=== PATIENT | female | born 1980 | race Two or more races ===

== ENCOUNTER 2018-07-19 08:09 | Day surgery (SDC) | payer BC ==
[2018-07-19] MEDS ORDERED: EPINEPHrine 1 MG/ML SDV ONE ×2 (08:41→08:42)
[2018-07-19] MEDS ORDERED: Lactated Ringers 1,000 ML IV SCH (08:45)
[2018-07-19] MEDS ORDERED: Propofol 200 MG/20 ML SDV ONE (09:26)
[2018-07-19] MEDS ORDERED: Midazolam 1 MG/ML 2 ML SDV ONE (09:27)
[2018-07-19] MEDS ORDERED: fentaNYL 250 MCG/5 ML SDV ONE ×2 (09:27→12:12)
--- NOTE | 2018-07-19 09:47 | PCM.PREANE ---
Preanesthetic Assessment - Anesthesia/Transfusion/Family Hx Anesthesia History: Prior Anesthesia Without Reaction Family History of Anesthesia Reaction: No Transfusion History: No Prior Transfusion(s) - Review of Systems General: No Symptoms Pulmonary: No Symptoms Cardiovascular: No Symptoms Gastrointestinal: No Symptoms Neurological: No Symptoms Other: Reports: None - Physical Assessment NPO Status Date: 07/18/18 NPO Status Time: 23:00 O2 Sat by Pulse Oximetry: 97 Respiratory Rate: 18 Vital Signs: Last Vital Signs Temp 97.3 F 07/19/18 08:25 Pulse 85 07/19/18 08:25 Resp 18 07/19/18 08:25 BP 138/70 07/19/18 08:25 Pulse Ox 97 07/19/18 08:25 Height: 5 ft 2 in Weight: 74.389 kg ASA Class: 1 Mental Status: Alert & Oriented x3 Airway Class: Mallampati = 1 Dentition: Reports: Normal Dentition ROM/Head Extension: Full Lungs: Clear to Auscultation, Normal Respiratory Effort Cardiovascular: Regular Rate, Regular Rhythm - Lab Values: Laboratory Last Values Urine HCG, Qual NEGATIVE (NEGATIVE) 07/19/18 08:18 - Allergies Allergies/Adverse Reactions: Allergies Allergy/AdvReac Type Severity Reaction Status Date / Time No Known Allergies Allergy Verified 07/16/18 14:18 - Blood Blood Available: No - Anesthesia Plan Pre-Op Medication Ordered: None - Acknowledgements Anesthesia Type Planned: General Anesthesia Pt an Appropriate Candidate for the Planned Anesthesia: Yes Alternatives and Risks of Anesthesia Discussed w Pt/Guardian: Yes Pt/Guardian Understands and Agrees with Anesthesia Plan: Yes Additional Comments: PMH: none PLAN: GET with paralysis, using microlaryngoscopy tube, and suggamidex for reversal. PreAnesthesia Questionnaire HEENT History: Reports: None Gastrointestinal History: Reports: Hepatitis Other Gastrointestinal History: hepatitis as a child, has been treated Genitourinary History: Reports: None Neurological History: Reports: Migraines Oncologic (Cancer) History: Reports: None - Past Surgical History Head Surgeries/Procedures: Reports: None HEENT Surgical History: Reports: Other (See Below) Other HEENT Surgeries/Procedures: previous removal of vocal lesion 10 years ago in [place] Female Surgical History: Reports: Breast Biopsy, Breast Implant Oncologic Surgical History: Reports: Biopsy of Breast - SUBSTANCE USE Smoking Status *Q: Former Smoker Recreational Drug Use History: No - HOME MEDS Home Medications: Home Meds Diet Pill 1 tab PO DAILY 07/16/18 [History] Multivitamin [Multivitamins] 1 tab PO DAILY 07/16/18 [History] Vitamin E 400 units PO DAILY 07/16/18 [History] - CURRENT (IN HOUSE) MEDS Current Meds: Current Medications Lactated Ringer's (Ringers, Lactated) 1,000 mls @ 100 mls/hr IV ASDIRECTED RAYSHAWN Discontinued Medications Epinephrine HCl (Adrenalin) Confirm Administered Dose 3 mg .ROUTE .STK-MED ONE Stop: 07/19/18 08:42 Epinephrine HCl (Adrenalin) Confirm Administered Dose 1 mg .ROUTE .STK-MED ONE Stop: 07/19/18 08:43 Fentanyl (Sublimaze) Confirm Administered Dose 250 mcg .ROUTE .STK-MED ONE Stop: 07/19/18 09:28 Lidocaine HCl (Xylocaine-Mpf 1%) Confirm Administered Dose 5 mls @ as directed .ROUTE .STK-MED ONE Stop: 07/19/18 09:27 Midazolam HCl (Versed 1 Mg/Ml) Confirm Administered Dose 2 mg .ROUTE .STK-MED ONE Stop: 07/19/18 09:28 Propofol (Diprivan 20 Ml) Confirm Administered Dose 200 mg .ROUTE .STK-MED ONE Stop: 07/19/18 09:27
--- NOTE | 2018-07-19 11:28 | PCM.HPR ---
H & P Addendum review - H & P Addendum Review Date of Original H & P: 07/15/18 Date Reviewed: 07/19/18 Time Reviewed: 11:35 Patient was Examined: No Changes
[2018-07-19] MEDS ORDERED: diphenhydrAMINE 50 MG/ML SDV ONE (12:58)
[2018-07-19] MEDS ORDERED: Ketorolac 30 MG/ML SDV ONE (12:58)
[2018-07-19] MEDS ORDERED: Ondansetron 4 MG/2 ML SDV ONE (12:58)
[2018-07-19] MEDS ORDERED: Dexamethasone 4 MG/ML 5 ML MDV ONE (12:58)
[2018-07-19] MEDS ORDERED: Rocuronium 10 MG/ML 10 ML Syringe ONE (12:58)
[2018-07-19] MEDS ORDERED: Metoclopramide 10 MG/2 ML SDV ONE (12:58)
[2018-07-19] MEDS ORDERED: Sugammadex Sodium 200 MG/2 ML VIAL ONE (13:00)
[2018-07-19] MEDS ORDERED: HYDROmorphone 2 MG/ML SDV IVPUSH ONE (13:15)
[2018-07-19] MEDS ORDERED: HYDROmorphone 2 MG/ML Syringe ONE (13:27)
--- NOTE | 2018-07-19 13:42 | PCM.POSTAN ---
POST ANESTHESIA ASSESSMENT - MENTAL STATUS Mental Status: Alert, Oriented - RESPIRATORY Respiratory Status: Respiratory Rate WNL, Airway Patent, O2 Saturation Stable - CARDIOVASCULAR CV Status: Pulse Rate WNL, Blood Pressure Stable - GASTROINTESTINAL GI Status: No Symptoms - POST OP HYDRATION Hydration Status: Adequate & Stable
--- NOTE | 2018-07-19 15:04 | PCM48HPAN ---
Post Anesthesia Note - EVALUATION WITHIN 48HRS OF ANESTHETIC Vital Signs in Normal Range: Yes Patient Participated in Evaluation: Yes Respiratory Function Stable: Yes Airway Patent: Yes Cardiovascular Function Stable: Yes Hydration Status Stable: Yes Pain Control Satisfactory: Yes Nausea and Vomiting Control Satisfactory: Yes Mental Status Recovered: Yes Resp Rate: 14
--- NOTE | 2018-07-19 15:57 | PCM.OPNOTE ---
- General Post-Op/Procedure Note Date of Surgery/Procedure: 07/19/18 Condition: Good Free Text/Narrative:: Intake & Output 07/19/18 07/19/18 07/19/18 06:59 14:59 22:59 Intake Total 1200 Balance 1200 Diagnosis: Hoarseness; left vocal cord polyp Procedure: Micro laryngoscopy and excision of left vocal cord polyp Surgeon: Erin Washburn MD Anesthesia: Gen. Anesthesiologist: Mulu Guillory Date of procedure: 07/19/2018 Indications:Hoarseness; left vocal cord polyp Findings: Left true vocal cord junction of anterior one third and posterior two third polypoid lesion present Operation Details: Informed consent was obtained and patient was brought back to operating room and laid supine on operating table. General anesthesia was administered with a microlaryngoscopy endotracheal tube. Patient was then appropriately positioned and microlaryngoscopy suspension was set up. An adult Kleinsasser laryngoscope was used to obtain a good view of the endolarynx including the lesion and this was suspended with the help of a suspension system. Photo documentation was obtained with 0 Clemons torie. A microscope was then brought into play and lesion lesion was visualized. Lesion was gently grasped with heart-shaped grasper and excised with microlaryngoscopy scissors. Minimal redundant epithelial edge was draped over the raw area after obtaining hemostasis with cottonoid pledgets soaked in 1:1000 epinephrine. Photodocumentation was obtained again. This concluded the procedure and the laryngoscope was removed. Lips teeth and gums were intact The patient was handed over to anesthesia for recovery. Specimens: Left vocal cord polyp IV fluids: 1200 Blood loss: 2ml Blood products: nil Disposition: PACU for recovery Follow up: 1 week.
== END 2018-07-19 15:35 | disposition home or self-care (01) ==
LOC: MW.SDS 08:09
PROVIDERS: ATTEND Otolaryngology
DX: J38.2 Nodules of vocal cords (principal); Z87.891 Personal history of nicotine dependence
CPT/HCPCS: 31536; 81025; J0171; J1100; J1170; J1200; J1885; J2250; J2405; J2704; J2765; J3010; J3490; J7120

== ENCOUNTER 2020-03-04 15:00 | Emergency (ER) | payer MEDICAID ==
[2020-03-04] MEDS ORDERED: Ondansetron 4 MG/2 ML SDV IVPUSH ONE (15:37)
[2020-03-04] MEDS ORDERED: Lactated Ringers 1,000 ML IV ONE (15:37)
[2020-03-04] MEDS ORDERED: Sodium Chloride 0.9% 10 ML Syringe FLUSH PRN (15:37)
[2020-03-04] MEDS ORDERED: Sodium Chloride 0.9% 2.5 ML Syringe FLUSH PRN (15:37)
--- NOTE | 2020-03-04 15:37 | EDM.PDOC ---
ED HPI GENERAL MEDICAL PROBLEM - General Chief Complaint: Gastrointestinal Problem Stated Complaint: VOMITING Time Seen by Provider: 03/04/20 15:12 Source of Information: Reports: Patient History Limitations: Reports: No Limitations - History of Present Illness INITIAL COMMENTS - FREE TEXT/NARRATIVE: 39-year-old female with no past medical presents with vomiting for 2 days. She has had nonbloody watery vomiting since Thursday night, associated with chills and sweats. She was tested negative for COVID last week. She denies fever, diarrhea, abdominal pain, chest pain, shortness of breath, back pain, dysuria. She is sexually active. LMP was 1 week ago. ROS: A 10-point review of systems, other than pertinent positives and negatives as stated per HPI, is otherwise negative Past medical history: No additional pertinent history Past Surgical history: No additional pertinent history Social history: No additional pertinent history Family history: No additional pertinent history PHYSICAL EXAM General: AOx4, GCS = 15, No distress HEENT: dry mucous membrane Neck: supple, no meningismus, no Kernig or Brudzinski Cardiac: S1S2 RRR Respiratory: CTAB, no crackles or rales, no wheezing Abdomen: Soft, nontender, no rebound or guarding, nondistended, no pulsatile mass. Back: nontender Musculoskeletal: NVI distally, no deformity Neuro: No focal deficits abd Pain Score (Numeric/FACES): 6 - Related Data Allergies Allergy/AdvReac Type Severity Reaction Status Date / Time No Known Allergies Allergy Verified 03/04/20 15:27 Home Meds: Home Meds Ondansetron [Zofran ODT] 4 mg PO Q6H PRN #12 tab.dis 03/04/20 [Rx] Past Medical History HEENT History: Reports: None Gastrointestinal History: Reports: Hepatitis Other Gastrointestinal History: hepatitis as a child, has been treated Genitourinary History: Reports: None Neurological History: Reports: Migraines Oncologic (Cancer) History: Reports: None - Infectious Disease History Infectious Disease History: Reports: Other (See Below) Other Infectious Disease History: Hepatitis - Past Surgical History Head Surgeries/Procedures: Reports: None HEENT Surgical History: Reports: Other (See Below) Other HEENT Surgeries/Procedures: previous removal of vocal lesion 10 years ago in [place] Other Respiratory Surgeries/Procedures: vocal cord polyps with removal. Female Surgical History: Reports: Breast Biopsy, Breast Implant Oncologic Surgical History: Reports: Biopsy of Breast Social & Family History - Family History Family Medical History: Unobtainable - Tobacco Use Smoking Status *Q: Current Some Day Smoker Years of Tobacco use: 15 Packs/Tins Daily: 0 - Recreational Drug Use Recreational Drug Use: No ED ROS GENERAL - Review of Systems Review Of Systems: See Below (see dictation) ED EXAM, GENERAL - Physical Exam Exam: See Below (see dictation) EKG INTERPRETATION EKG Interpretation Comments: 58 bpm, NSR, normal QRS interval, no STEMI. EKG and rhythm strip interpreted by me at 1553 Course - Vital Signs Last Recorded V/S: Last Vital Signs Temp 96.9 F 03/04/20 15:20 Pulse 57 L 03/04/20 17:30 Resp 16 03/04/20 17:00 BP 113/71 03/04/20 17:30 Pulse Ox 96 03/04/20 17:30 - Orders/Labs/Meds Orders: Active Orders 24 hr Category Date Time Status EKG Documentation Completion [RC] STAT Care 03/04/20 15:38 Active Sodium Chloride 0.9% [Saline Flush] Med 03/04/20 15:37 Active 10 ml FLUSH ASDIRECTED PRN Sodium Chloride 0.9% [Saline Flush] Med 03/04/20 15:37 Active 2.5 ml FLUSH ASDIRECTED PRN Saline Lock Insert [OM.PC] Stat Oth 03/04/20 15:37 Ordered Medication Orders Sodium Chloride (Saline Flush) 10 ml FLUSH ASDIRECTED PRN PRN Reason: Keep Vein Open Last Admin: 03/04/20 16:00 Dose: 10 ml Documented by: CLEMENTINE Sodium Chloride (Saline Flush) 2.5 ml FLUSH ASDIRECTED PRN PRN Reason: Keep Vein Open Last Admin: 03/04/20 16:00 Dose: 2.5 ml Documented by: CLEMENTINE Labs: Laboratory Tests 03/04/20 03/04/20 03/04/20 Range/Units 15:42 15:57 15:57 WBC 8.21 (4.0-11.0) K/uL RBC 5.23 (4.30-5.90) M/uL Hgb 15.7 (12.0-16.0) g/dL Hct 46.4 H (36.0-46.0) % MCV 88.7 (80.0-98.0) fL MCH 30.0 (27.0-32.0) pg MCHC 33.8 (31.0-37.0) g/dL RDW Std Deviation 42.6 (28.0-62.0) fl RDW Coeff of Ryann 13 (11.0-15.0) % Plt Count 330 (150-400) K/uL MPV 9.90 (7.40-12.00) fL Neut % (Auto) 76.8 (48.0-80.0) % Lymph % (Auto) 18.8 (16.0-40.0) % [place] % (Auto) 4.1 (0.0-15.0) % Eos % (Auto) 0.1 (0.0-7.0) % Baso % (Auto) 0.2 (0.0-1.5) % Neut # (Auto) 6.3 H (1.4-5.7) K/uL Lymph # (Auto) 1.5 (0.6-2.4) K/uL [place] # (Auto) 0.3 (0.0-0.8) K/uL Eos # (Auto) 0.0 (0.0-0.7) K/uL Baso # (Auto) 0.0 (0.0-0.1) K/uL Nucleated RBC % 0.0 /100WBC Nucleated RBCs # 0 K/uL Sodium 138 (136-145) mmol/L Potassium 3.1 L (3.5-5.1) mmol/L Chloride 98 (98-107) mmol/L Carbon Dioxide 21.4 (21.0-32.0) mmol/L BUN 16 (7.0-18.0) mg/dL Creatinine 0.9 (0.6-1.0) mg/dL Est Cr Clr Drug Dosing 67.03 mL/min Estimated GFR (MDRD) > 60.0 ml/min Glucose 79 (74-106) mg/dL Calcium 8.9 (8.5-10.1) mg/dL Total Bilirubin 0.8 (0.2-1.0) mg/dL AST 17 (15-37) IU/L ALT 36 (14-63) IU/L Alkaline Phosphatase 74 (46-116) U/L Troponin I < 0.050 (0.000-0.056) ng/mL Total Protein 8.9 H (6.4-8.2) g/dL Albumin 4.5 (3.4-5.0) g/dL Globulin 4.4 H (2.6-4.0) g/dL Albumin/Globulin Ratio 1.0 (0.9-1.6) Lipase 117 (73-393) U/L Urine Color YELLOW Urine Appearance SLT CLOUDY Urine pH 5.5 (5.0-8.0) Ur Specific [place] >= 1.030 (1.001-1.035) Urine Protein 30 H (NEGATIVE) mg/dL Urine Glucose (UA) NEGATIVE (NEGATIVE) mg/dL Urine Ketones >=80 (NEGATIVE) mg/dL Urine Occult Blood TRACE-INTACT H (NEGATIVE) Urine Nitrite NEGATIVE (NEGATIVE) Urine Bilirubin SMALL H (NEGATIVE) Urine Ictotest NEGATIVE Urine Urobilinogen 0.2 (<2.0) EU/dL Ur Leukocyte Esterase NEGATIVE (NEGATIVE) Urine RBC 1-3 (0-2/HPF) Urine WBC 0-2 (0-5/HPF) Ur Epithelial Cells FEW (NONE-FEW) Urine Bacteria FEW (NEGATIVE) Urine Mucus MODERATE (NONE-MOD) Urine Yeast OCCASIONAL Meds: Medications Generic Name Dose Route Start Last Admin Trade Name Freq PRN Reason Stop Dose Admin Sodium Chloride 10 ml 03/04/20 15:37 03/04/20 16:00 Saline Flush FLUSH 10 ml ASDIRECTED PRN Administration Keep Vein Open Sodium Chloride 2.5 ml 03/04/20 15:37 03/04/20 16:00 Saline Flush FLUSH 2.5 ml ASDIRECTED PRN Administration Keep Vein Open Discontinued Medications Generic Name Dose Route Start Last Admin Trade Name Freq PRN Reason Stop Dose Admin Lactated Ringer's 1,000 mls @ 999 mls/hr 03/04/20 15:37 03/04/20 16:00 Ringers, Lactated IV 03/04/20 16:37 999 mls/hr .BOLUS ONE Administration Ondansetron HCl 4 mg 03/04/20 15:37 03/04/20 16:00 Zofran IVPUSH 03/04/20 15:38 4 mg ONETIME ONE Administration Potassium Chloride 40 meq 03/04/20 16:47 03/04/20 17:38 Klor-Con M20 PO 03/04/20 16:48 40 meq ONETIME ONE Administration - Re-Assessments/Exams Free Text/Narrative Re-Assessment/Exam: 03/04/20 18:29 After IV fluids and Zofran in the ER, the patient improved and is currently stable for discharge. I performed a repeat exam and did not appreciate new abnormal findings. Patient exhibits normal vital signs and has a normal gait on road test. She denies having any chest pain. I advised the patient to return to the ER for reevaluation if symptoms worsened, including fever, worsening pain, or any other worrisome symptoms. I instructed the patient to follow up with their PCP within 2-3 days. MEDICAL DECISION MAKING: I reviewed the patients past medical records, lab and radiographic findings. I discussed the case with the patient. My differential diagnosis included: Electrolyte abnormality, atypical chest pain, intra- abdominal process, viral gastroenteritis. Patient symptoms are responsive to IV Zofran and IV fluids, intra-abdominal pathology was felt unlikely given benign/non tender abdominal exam. Acute coronary syndrome was considered but there are negative troponin for symptoms greater than 6 hours, no acute ischemic EKG changes, and the patient has a low HEART score. Based on this, I feel that there is low risk for short-term major adverse cardiac event. Departure - Departure Time of Disposition: 18:31 Disposition: Home, Self-Care 01 Condition: Good Clinical Impression: Vomiting, Dehydration - Discharge Information *PRESCRIPTION DRUG MONITORING PROGRAM REVIEWED*: Not Applicable *COPY OF PRESCRIPTION DRUG MONITORING REPORT IN PATIENT KAELA: Not Applicable Prescriptions: Ondansetron [Zofran ODT] 4 mg PO Q6H PRN #12 tab.dis PRN Reason: Vomiting Instructions: Dehydration, Adult, [id number], Nausea and Vomiting, Adult, [id number] Referrals: PCP,None [Primary Care Provider] - Forms: ED Department Discharge Additional Instructions: The need for follow-up, as well as the timing and circumstances, are variable depending upon the specifics of your emergency department visit. If you don't have a primary care physician on staff, we will provide you with a referral. We always advise you to contact your personal physician following an emergency department visit to inform them of the circumstance of the visit and for follow-up with them and/or the need for any referrals to a consulting specialist. The emergency department will also refer you to a specialist when appropriate. This referral assures that you have the opportunity for follow-up care with a specialist. All of these measure are taken in an effort to provide you with optimal care, which includes your follow-up. Under all circumstances we always encourage you to contact your private physician who remains a resource for coordinating your care. When calling for follow-up care, please make the office aware that this follow-up is from your recent emergency room visit. If for any reason you are refused follow-up, please contact the [facility] Emergency Department at and asked to speak to the emergency department charge nurse. If you do not have a primary care doctor, please follow up with the clinics below within 3-5 days. [facility] - Primary Care [address] [place] [id number] [facility] [address] [place] [id number] Sepsis Event Note (ED) - Evaluation Sepsis Screening Result: No Definite Risk - Focused Exam Vital Signs: Vital Signs Temp Pulse Resp BP Pulse Ox 03/04/20 17:30 57 L 113/71 96 03/04/20 17:00 54 L 16 121/70 97 03/04/20 16:30 53 L 97 03/04/20 16:15 57 L 118/76 03/04/20 16:00 63 117/64 03/04/20 15:30 60 94 L 03/04/20 15:20 96.9 F 63 16 113/69 96 - My Orders Last 24 Hours: My Active Orders 03/04/20 15:37 Sodium Chloride 0.9% [Saline Flush] 10 ml FLUSH ASDIRECTED PRN Sodium Chloride 0.9% [Saline Flush] 2.5 ml FLUSH ASDIRECTED PRN Saline Lock Insert [OM.PC] Stat 03/04/20 15:38 EKG Documentation Completion [RC] STAT - Assessment/Plan Last 24 Hours: My Active Orders 03/04/20 15:37 Sodium Chloride 0.9% [Saline Flush] 10 ml FLUSH ASDIRECTED PRN Sodium Chloride 0.9% [Saline Flush] 2.5 ml FLUSH ASDIRECTED PRN Saline Lock Insert [OM.PC] Stat 03/04/20 15:38 EKG Documentation Completion [RC] STAT
[2020-03-04 16:43] LABS: BLOOD UREA NITROGEN,BUN 16 mg/dL (7.0-18.0); CARBON DIOXIDE,CO2 21.4 mmol/L (21.0-32.0); CHLORIDE,CL 98 mmol/L (98-107); GLUCOSE RANDOM 79 mg/dL (74-106); LIPASE 117 U/L (73-393); POTASSIUM,K 3.1 mmol/L (3.5-5.1); SODIUM,NA 138 mmol/L (136-145)
[2020-03-04] MEDS ORDERED: Potassium Chloride 20 MEQ Tab.ER PO ONE (16:47)
== END 2020-03-04 19:00 | disposition home or self-care (01) ==
LOC: MW.ED 15:00
DX: E86.0 Dehydration (principal); F17.200 Nicotine dependence, unspecified, uncomplicated; Z20.828 Contact with and (suspected) exposure to other viral communicable diseases
CPT/HCPCS: 36415; 80053; 81001; 83690; 84484; 85025; 93005; 96361; 96374; 99284; A9270; J2405; J7120; 99283

== ENCOUNTER 2020-03-05 12:13 | Emergency (ER) | payer MEDICAID, OTHER ==
--- NOTE | 2020-03-05 12:33 | EDM.PDOC ---
ED HPI GENERAL MEDICAL PROBLEM - General Chief Complaint: Abdominal Pain Stated Complaint: ABDOMINAL APIN Time Seen by Provider: 03/05/20 12:18 Source of Information: Reports: Patient History Limitations: Reports: No Limitations - History of Present Illness INITIAL COMMENTS - FREE TEXT/NARRATIVE: 39-year-old female returns from her ER visit yesterday for abdominal pain, nausea, vomiting. She was seen here yesterday for nonbilious vomiting for 2 days, with chills and sweats. She was tested negative for COVID last week. Yesterday she denied abdominal pain. She received IV fluids and Zofran with complete resolvent of her symptoms, her troponin yesterday was <0.05, her potassium yesterday was 3.1 and was repleted with 40 M EQ KCl PO, she was discharged with prescription of Zofran. She has not filled her Zofran. Last night she started developing abdominal pain, pain is diffuse, dull, aching, bloated sensation, constant, no alleviating or exacerbating factors. She feels distended. She still had vomiting today but denies fever, diarrhea, chest pain, shortness of breath. ROS: A 10-point review of systems, other than pertinent positives and negatives as stated per HPI, is otherwise negative Past medical history: No additional pertinent history Past Surgical history: Vocal cord surgery Social history: No additional pertinent history Family history: No additional pertinent history PHYSICAL EXAM General: AOx4, GCS = 15, mild distress HEENT: dry mucous membrane Neck: supple, no meningismus, no Kernig or Brudzinski Cardiac: S1S2 RRR Respiratory: CTAB, no crackles or rales, no wheezing Abdomen: Soft, mild epigastric tenderness, no rebound or guarding. Back: nontender Musculoskeletal: NVI distally, no deformity Neuro: No focal deficits abdominal, body Pain Score (Numeric/FACES): 10 - Related Data Allergies Allergy/AdvReac Type Severity Reaction Status Date / Time No Known Allergies Allergy Verified 03/05/20 12:34 Home Meds: Home Meds Ondansetron [Zofran ODT] 4 mg PO Q6H PRN #12 tab.dis 03/04/20 [Rx] Omeprazole Magnesium [Prilosec Otc] 20 mg PO BID #30 tablet. 03/05/20 [Rx] Past Medical History HEENT History: Reports: None Gastrointestinal History: Reports: Hepatitis Other Gastrointestinal History: hepatitis as a child, has been treated Genitourinary History: Reports: None Neurological History: Reports: Migraines Oncologic (Cancer) History: Reports: None - Infectious Disease History Infectious Disease History: Reports: Other (See Below) Other Infectious Disease History: Hepatitis - Past Surgical History Head Surgeries/Procedures: Reports: None HEENT Surgical History: Reports: Other (See Below) Other HEENT Surgeries/Procedures: previous removal of vocal lesion 10 years ago in [place] Other Respiratory Surgeries/Procedures: vocal cord polyps with removal. Female Surgical History: Reports: Breast Biopsy, Breast Implant Oncologic Surgical History: Reports: Biopsy of Breast Social & Family History - Family History Family Medical History: Unobtainable ED ROS GENERAL - Review of Systems Review Of Systems: See Below (see dictation) ED EXAM, GI/ABD - Physical Exam Exam: See Below (see dictation) EKG INTERPRETATION EKG Interpretation Comments: [] bpm, NSR, normal QRS interval, no STEMI. EKG and rhythm strip interpreted by me at [] Course - Vital Signs Last Recorded V/S: Last Vital Signs Temp 96.6 F L 03/05/20 16:52 Pulse 58 L 03/05/20 16:52 Resp 16 03/05/20 16:52 BP 96/49 L 03/05/20 16:52 Pulse Ox 96 03/05/20 16:52 - Orders/Labs/Meds Orders: Active Orders 24 hr Category Date Time Status Cardiac Monitoring [RC] . DIRECTED Care 03/05/20 12:46 Active UA W/MICROSCOPIC [URIN] Stat Lab 03/05/20 12:47 Stop Req Sodium Chloride 0.9% [Saline Flush] Med 03/05/20 12:46 Active 10 ml FLUSH ASDIRECTED PRN Sodium Chloride 0.9% [Saline Flush] Med 03/05/20 12:46 Active 2.5 ml FLUSH ASDIRECTED PRN Saline Lock Insert [OM.PC] Stat Ot 03/05/20 12:46 Ordered Medication Orders Sodium Chloride (Saline Flush) 10 ml FLUSH ASDIRECTED PRN PRN Reason: Keep Vein Open Last Admin: 03/05/20 15:22 Dose: 10 ml Documented by: FARIHA Sodium Chloride (Saline Flush) 2.5 ml FLUSH ASDIRECTED PRN PRN Reason: Keep Vein Open Last Admin: 03/05/20 15:22 Dose: 2.5 ml Documented by: FARIHA Labs: Laboratory Tests 03/05/20 03/05/20 03/05/20 Range/Units 12:43 12:43 12:54 WBC 7.99 (4.0-11.0) K/uL RBC 4.87 (4.30-5.90) M/uL Hgb 14.5 (12.0-16.0) g/dL Hct 43.3 (36.0-46.0) % MCV 88.9 (80.0-98.0) fL MCH 29.8 (27.0-32.0) pg MCHC 33.5 (31.0-37.0) g/dL RDW Std Deviation 42.7 (28.0-62.0) fl RDW Coeff of Ryann 13 (11.0-15.0) % Plt Count 312 (150-400) K/uL MPV 9.90 (7.40-12.00) fL Neut % (Auto) 66.5 (48.0-80.0) % Lymph % (Auto) 25.4 (16.0-40.0) % [place] % (Auto) 7.5 (0.0-15.0) % Eos % (Auto) 0.3 (0.0-7.0) % Baso % (Auto) 0.3 (0.0-1.5) % Neut # (Auto) 5.3 (1.4-5.7) K/uL Lymph # (Auto) 2.0 (0.6-2.4) K/uL [place] # (Auto) 0.6 (0.0-0.8) K/uL Eos # (Auto) 0.0 (0.0-0.7) K/uL Baso # (Auto) 0.0 (0.0-0.1) K/uL Nucleated RBC % 0.0 /100WBC Nucleated RBCs # 0 K/uL Sodium 137 (136-145) mmol/L Potassium 3.6 (3.5-5.1) mmol/L Chloride 101 (98-107) mmol/L Carbon Dioxide 19.8 L (21.0-32.0) mmol/L BUN 14 (7.0-18.0) mg/dL Creatinine 0.8 (0.6-1.0) mg/dL Est Cr Clr Drug Dosing 75.41 mL/min Estimated GFR (MDRD) > 60.0 ml/min Glucose 93 (74-106) mg/dL Calcium 8.3 L (8.5-10.1) mg/dL Total Bilirubin 0.8 (0.2-1.0) mg/dL AST 19 (15-37) IU/L ALT 34 (14-63) IU/L Alkaline Phosphatase 62 (46-116) U/L Troponin I < 0.050 (0.000-0.056) ng/mL C-Reactive Protein 1.10 H (0.00-0.90) mg/dL Total Protein 7.8 (6.4-8.2) g/dL Albumin 4.0 (3.4-5.0) g/dL Globulin 3.8 (2.6-4.0) g/dL Albumin/Globulin Ratio 1.1 (0.9-1.6) Lipase 95 (73-393) U/L SARS-CoV-2 RNA (NAHED) NEGATIVE (NEGATIVE) Meds: Medications Generic Name Dose Route Start Last Admin Trade Name Renuka PRN Reason Stop Dose Admin Sodium Chloride 10 ml 03/05/20 12:46 03/05/20 15:22 Saline Flush FLUSH 10 ml ASDIRECTED PRN Administration Keep Vein Open Sodium Chloride 2.5 ml 03/05/20 12:46 03/05/20 15:22 Saline Flush FLUSH 2.5 ml ASDIRECTED PRN Administration Keep Vein Open Discontinued Medications Generic Name Dose Route Start Last Admin Trade Name Fresadi PRN Reason Stop Dose Admin Morphine Sulfate 4 mg 03/05/20 14:54 03/05/20 15:21 Morphine IVPUSH 03/05/20 14:55 4 mg ONETIME ONE Administration - Re-Assessments/Exams Free Text/Narrative Re-Assessment/Exam: 03/05/20 17:10 I reassessed the patient, who is feeling much better after IV morphine and IV fluids. I reassessed her abdomen, just soft, nontender, no rebound or guarding. She is currently stable for discharge. I performed a repeat exam and did not appreciate new abnormal findings. Patient exhibits normal vital signs and has a normal gait on road test. I advised the patient to return to the ER for reevaluation if symptoms worsened, including fever, worsening pain, or any other worrisome symptoms. I instructed the patient to follow up with their PCP within 2-3 days for GI referral. MEDICAL DECISION MAKING: I reviewed the patients past medical records, lab and radiographic findings. I discussed the case with the patient. My differential diagnosis included: Atypical chest pain, diverticulitis, appendicitis, gastritis. Patient's troponin today was unchanged from yesterday, her heart score = less than 3, I do not suspect atypical chest pain. Her lipase was unremarkable, I do not suspect pancreatitis. CT did not reveal signs of diverticulitis or appendicitis or bowel obstruction. She was discharged yesterday was Zofran but she has yet to fill her prescription. Today her symptoms were improved with IV morphine, IV fluids, IV Zofran, repeat abdominal exam was soft, nontender with no rebound or guarding, with no tenderness to the right lower quadrant, I do not suspect appendicitis. I tested her for COVID concern for COVID gastroenteritis, that was negative. There was no leukocytosis or fever or tachycardia, I do not suspect sirs or sepsis. There was no transaminitis, I do not suspect gallbladder etiology or obstructive biliary colic. Her liver enzymes also did not demonstrate any signs of hepatitis. Departure - Departure Time of Disposition: 17:15 Disposition: Home, Self-Care 01 Condition: Good Clinical Impression: Abdominal pain - Discharge Information *PRESCRIPTION DRUG MONITORING PROGRAM REVIEWED*: Not Applicable *COPY OF PRESCRIPTION DRUG MONITORING REPORT IN PATIENT KAELA: Not Applicable Prescriptions: Omeprazole Magnesium [Prilosec Otc] 20 mg PO BID #30 tablet. Referrals: Andrei Gruber MD [Primary Care Provider] - 3 Days Terry Higgins MD [Physician] - 3 Days (for EGD/Colonoscopy) Forms: ED Department Discharge Additional Instructions: The need for follow-up, as well as the timing and circumstances, are variable depending upon the specifics of your emergency department visit. If you don't have a primary care physician on staff, we will provide you with a referral. We always advise you to contact your personal physician following an emergency department visit to inform them of the circumstance of the visit and for follow-up with them and/or the need for any referrals to a consulting specialist. The emergency department will also refer you to a specialist when appropriate. This referral assures that you have the opportunity for follow-up care with a specialist. All of these measure are taken in an effort to provide you with optimal care, which includes your follow-up. Under all circumstances we always encourage you to contact your private physician who remains a resource for coordinating your care. When calling for follow-up care, please make the office aware that this follow-up is from your recent emergency room visit. If for any reason you are refused follow-up, please contact the [facility] Emergency Department at and asked to speak to the emergency department charge nurse. If you do not have a primary care doctor, please follow up with the clinics below within 3-5 days. [facility] - Primary Care [address] [place] [id number] [address] Sepsis Event Note (ED) - Focused Exam Vital Signs: Vital Signs Temp Pulse Resp BP Pulse Ox 03/05/20 16:52 96.6 F L 58 L 16 96/49 L 96 03/05/20 15:23 97.2 F 58 L 18 114/69 98 03/05/20 12:31 96.9 F 58 L 16 142/75 H 99 - My Orders Last 24 Hours: My Active Orders 03/05/20 12:46 Cardiac Monitoring [RC] . DIRECTED Sodium Chloride 0.9% [Saline Flush] 10 ml FLUSH ASDIRECTED PRN Sodium Chloride 0.9% [Saline Flush] 2.5 ml FLUSH ASDIRECTED PRN Saline Lock Insert [OM.PC] Stat 03/05/20 12:47 UA W/MICROSCOPIC [URIN] Stat - Assessment/Plan Last 24 Hours: My Active Orders 03/05/20 12:46 Cardiac Monitoring [RC] . DIRECTED Sodium Chloride 0.9% [Saline Flush] 10 ml FLUSH ASDIRECTED PRN Sodium Chloride 0.9% [Saline Flush] 2.5 ml FLUSH ASDIRECTED PRN Saline Lock Insert [OM.PC] Stat 03/05/20 12:47 UA W/MICROSCOPIC [URIN] Stat
[2020-03-05] MEDS ORDERED: Sodium Chloride 0.9% 2.5 ML Syringe FLUSH PRN (12:46)
[2020-03-05] MEDS ORDERED: Sodium Chloride 0.9% 10 ML Syringe FLUSH PRN (12:46)
[2020-03-05 13:20] LABS: BLOOD UREA NITROGEN,BUN 14 mg/dL (7.0-18.0); CARBON DIOXIDE,CO2 19.8 mmol/L (21.0-32.0); CHLORIDE,CL 101 mmol/L (98-107); GLUCOSE RANDOM 93 mg/dL (74-106); LIPASE 95 U/L (73-393); POTASSIUM,K 3.6 mmol/L (3.5-5.1); SODIUM,NA 137 mmol/L (136-145)
[2020-03-05] MEDS ORDERED: Morphine 4 MG/ML Syringe IVPUSH ONE (14:54)
--- NOTE | 2020-03-05 16:13 | CT ---
CT abdomen and pelvis Technique: Multiple axial sections were obtained from above the dome of the diaphragm inferiorly through the pubic symphysis. Intravenous contrast was utilized. No oral contrast has been given. Findings: Visualized lung bases show nothing acute. Small cyst is felt to be present within the dome of the left lobe of the liver measuring 9 mm. Fat is noted next to the ligamentum teres fissure within the liver which is a normal variant. Liver is otherwise unremarkable in its CT appearance. Spleen appears within normal limits. Adrenal glands show no nodule. Pancreas shows no discrete abnormality. Gallbladder contains no calcified gallstones. Kidneys show symmetric contrast enhancement without hydronephrosis or mass. Aorta shows no aneurysm. No retroperitoneal adenopathy or mesenteric abnormalities are seen. Appendix is seen which is normal. No pelvic mass or adenopathy is seen. No free fluid or inflammatory change is seen. Bone window settings were reviewed which shows no acute osseous finding. Impression: 1. Nothing acute is appreciated on CT study of the abdomen and pelvis. Diagnostic code #1 This report was dictated in MDT
[2020-03-05] MEDS ORDERED: Iopamidol 755 MG/ML 50 ML Bottle IV STA (18:20)
[2020-03-05] MEDS ORDERED: Iopamidol 755 MG/ML 50 ML Bottle IV ONE (18:22)
== END 2020-03-05 17:34 | disposition home or self-care (01) ==
LOC: MW.ED 12:13
DX: R10.13 Epigastric pain (principal); R11.2 Nausea with vomiting, unspecified; Z20.828 Contact with and (suspected) exposure to other viral communicable diseases
CPT/HCPCS: 74177; 80053; 83690; 84484; 85025; 86140; 87635; 96374; 99284; J2270; Q9967; 99283; U0002

== ENCOUNTER 2021-03-08 22:23 | Emergency (ER) | payer MEDICAID ==
[2021-03-09] MEDS ORDERED: Ketorolac 15 MG/ML SDV IM ONE (00:48)
--- NOTE | 2021-03-09 01:59 | EDM.PDOC ---
ED HPI GENERAL MEDICAL PROBLEM - General Chief Complaint: Back Pain or Injury Stated Complaint: LOWER BACK PAIN Time Seen by Provider: 03/09/21 00:10 - History of Present Illness INITIAL COMMENTS - FREE TEXT/NARRATIVE: CHIEF COMPLAINT(S): Back pain HISTORY OF PRESENT ILLNESS: This is a 40-year-old woman without any significant past medical history who presents to the emergency department with a chief complaint of back pain. The patient states that she has been experiencing back the lower part of her back since this morning. sHe denies any bowel incontinence, urinary incontinence, saddle anesthesia, fever, rash, IV drug use or any immunocompromise state. She has that it is achy and rated 9 out of 10 without any radiation. She denies any exacerbating factors. She states that she is trying ibuprofen and Tylenol without any relief. Pain does not radiate and she does not have any numbness or tingling of his extremities. There are no relieving factors REVIEW OF SYSTEMS: Constitutional: Denies fever, chills. Eyes: Denies eye pain Ears, Nose, Mouth, & Throat: Denies earache Cardiovascular: Denies chest pain Respiratory: Denies shortness of breath Gastrointestinal: Denies Nausea, vomiting, diarrhea, hematochezia. Genitourinary: Denies hematuria Skin:Denies a rash MSK: Positive for back pain Neurological: Denies blurred vision, numbness, tingling, weakness Psychiatric: Denies depression PAST MEDICAL HISTORY: As per history of present illness and as reviewed below otherwise noncontributory. SURGICAL HISTORY: As per history of present illness and as reviewed below otherwise noncontributory. SOCIAL HISTORY: As per history of present illness and as reviewed below otherwise noncontributory. FAMILY HISTORY: As per history of present illness and as reviewed below otherwise noncontributory. EXAMINATION OF ORGAN SYSTEMS/BODY AREAS: Constitutional: Blood pressure is 129/70, heart rate 71, respiratory rate 20 with an oxygen saturation of 97% on room air. Temperature 36.0 General: Well-appearing woman who is in no distress Psychiatric: Appropriate mood and affect. Eyes: No scleral icterus or conjunctival erythema ENMT: Moist mucous membranes. No pharyngeal erythema Cardiovascular: Regular, rate, and rhythm. No gallops, murmurs, or rubs. Bilateral upper extremity pulses symmetric and intact. No peripheral edema. No JVD. Respiratory: Lungs clear to auscultation bilaterally. No wheezes, rales, or rhonchi. Gastrointestinal: Soft, non-tender, non-distended. Normoactive bowel sounds Genitourinary: No suprapubic tenderness Musculoskeletal: Normal range of motion. There is no midline lumbar or thoracic tenderness. There is paralumbar muscle tenderness. No overlying skin changes. Negative straight leg test. Skin: No lesions or abrasions. Neurological: Alert, GCS 15 MEDICAL DECISION MAKING AND COURSE IN THE ED WITH INTERPRETATION/REVIEW OF DIAGNOSTIC STUDIES: This is a 40-year-old woman without any significant past medical history who presents to the emergency department with acute back pain without any red flag symptoms. At this time I do believe that his lumbar strain. We did obtain a urinalysis and test both of which were negative. We will treat the patient symptomatically with Toradol and did discuss treatment modalities at home. She is to return for any new or worsening symptoms. She was amenable to discharge at this time and had no further. DISPOSITION: The patient was discharged home in stable condition. The patient will follow up with primary care physician in 3 to 5 days CONDITION: Good PROCEDURES: None FINAL IMPRESSION(S)/DIAGNOSES: 1. Acute lumbar strain Anthony Martinez M.D. Treatments EVENT PROMOTIONS COORDINATOR: Reports: Other (see below) Other Treatments EVENT PROMOTIONS COORDINATOR: pt reports "Pat back and pain medication" lower back Pain Score (Numeric/FACES): 9 - Related Data Allergies Allergy/AdvReac Type Severity Reaction Status Date / Time No Known Allergies Allergy Verified 03/08/21 22:32 Home Meds: Home Meds Lidocaine 5% 1 gm .XX TID #35.44 gm 03/09/21 [Rx] methocarbamoL [Methocarbamol] 1,500 mg PO TID #42 tablet 03/09/21 [Rx] Past Medical History HEENT History: Reports: None Cardiovascular History: Reports: None Respiratory History: Reports: None Gastrointestinal History: Reports: Hepatitis Other Gastrointestinal History: hepatitis as a child, has been treated Genitourinary History: Reports: None [employer] History: Reports: None Musculoskeletal History: Reports: None Neurological History: Reports: Migraines Psychiatric History: Reports: None Endocrine/Metabolic History: Reports: None Hematologic History: Reports: None Immunologic History: Reports: None Oncologic (Cancer) History: Reports: None Dermatologic History: Reports: None - Infectious Disease History Infectious Disease History: Reports: Chicken Pox, Other (See Below) Other Infectious Disease History: Hepatitis - Past Surgical History Head Surgeries/Procedures: Reports: None HEENT Surgical History: Reports: Other (See Below) Other HEENT Surgeries/Procedures: previous removal of vocal lesion 10 years ago in [place] Respiratory Surgical History: Reports: Other (See Below) Other Respiratory Surgeries/Procedures: vocal cord polyps with removal Female Surgical History: Reports: Breast Biopsy, Breast Implant Oncologic Surgical History: Reports: Biopsy of Breast Social & Family History - Family History Family Medical History: No Pertinent Family History - Tobacco Use Tobacco Use Status *Q: Former Tobacco User Used Tobacco, but Quit: Yes Month/Year Tobacco Last Used: 2000 - Caffeine Use Caffeine Use: Reports: Soda - Recreational Drug Use Recreational Drug Use: Yes Drug Use in Last 12 Months: Yes Recreational Drug Type: Reports: Marijuana/Hashish Recreational Drug Use Frequency: Rarely ED ROS GENERAL - Review of Systems Review Of Systems: See Below ED EXAM, GENERAL - Physical Exam Exam: See Below Course - Vital Signs Last Recorded V/S: Last Vital Signs Temp 36.0 C L 03/08/21 22:32 Pulse 81 03/09/21 02:18 Resp 18 03/09/21 02:18 BP 122/69 03/09/21 02:18 Pulse Ox 96 03/09/21 02:18 - Orders/Labs/Meds Labs: Laboratory Tests 03/09/21 03/09/21 Range/Units 00:30 00:30 Urine Color YELLOW Urine Appearance CLEAR Urine pH 6.0 (5.0-8.0) Ur Specific [place] <= 1.005 (1.001-1.035) Urine Protein NEGATIVE (NEGATIVE) mg/dL Urine Glucose (UA) NEGATIVE (NEGATIVE) mg/dL Urine Ketones NEGATIVE (NEGATIVE) mg/dL Urine Occult Blood NEGATIVE (NEGATIVE) Urine Nitrite NEGATIVE (NEGATIVE) Urine Bilirubin NEGATIVE (NEGATIVE) Urine Urobilinogen 0.2 (<2.0) EU/dL Ur Leukocyte Esterase NEGATIVE (NEGATIVE) Urine HCG, Qual NEGATIVE (NEGATIVE) Meds: Medications Discontinued Medications Generic Name Dose Route Start Last Admin Trade Name Freq PRN Reason Stop Dose Admin Ketorolac Tromethamine 15 mg 03/09/21 00:48 03/09/21 00:59 Ketorolac 15 Mg/Ml Sdv IM 03/09/21 00:49 15 mg ONETIME ONE Administration Departure - Departure Time of Disposition: 01:59 Disposition: Home, Self-Care 01 Condition: Fair Clinical Impression: Lumbar strain - Discharge Information Prescriptions: Lidocaine 5% 1 gm .XX TID #35.44 gm methocarbamoL [Methocarbamol] 1,500 mg PO TID #42 tablet Instructions: Lumbar Strain, Back Injury Prevention Referrals: PCP,None [Primary Care Provider] - Forms: ED Department Discharge Additional Instructions: You were evaluated today on an emergent basis.As discussed I would like you to use the lidocaine to the area that affects your back the most. Please alternate with ice and heating pad. Please do stretching as described. I did send you a muscle relaxer please take that 3 times a day. If you have any worsening symptoms such as worsening back pain, urinating on yourself, defecating on yourself, fever, or numbness when wiping after having a bowel movement please return to the emergency department. Otherwise please follow-up with primary care physician in 3 to 5 days. Please use: Tylenol 500-1000mg every 6 hours (DO NOT TAKE MORE THAN 4000mg in 1 day) Ibuprofen 400mg every 6 hours (Take with food as it can cause ulcers, GI upset) Example schedule: 8:00 AM (Tylenol 500-1000mg) 11:00 AM (Ibuprofen 400mg) 2:00 PM (Tylenol 500-1000mg) 5:00 PM (Ibuprofen 400mg) In addition to Tylenol and Motrin you may use over the counter creams such as Voltaren Cream or Lidocaine Cream (Lidoderm) as needed 4 times a day for symptomatic relief. Ice the area 20 minutes 4 times per day [facility] - Primary Care [address] [place] [address] [id number] [address] [id number] The patient is informed of any results of their evaluation and diagnostic workup and all questions are answered. They are given discharge instructions and return precautions. The patient is stable for discharge. The patient states they understand and agree with the plan and that they will return if their symptoms get worse or if they have any new concerns. The following information is given to patients seen in the emergency department who are being discharged to home. This information is to outline your options for follow-up care. We provide all patients seen in our emergency department with a follow-up referral. The need for follow-up, as well as the timing and circumstances, are variable depending upon the specifics of your emergency department visit. If you don't have a primary care physician on staff, we will provide you with a referral. We always advise you to contact your personal physician following an emergency department visit to inform them of the circumstance of the visit and for follow-up with them and/or the need for any referrals to a consulting specialist. The emergency department will also refer you to a specialist when appropriate. This referral assures that you have the opportunity for follow-up care with a specialist. All of these measure are taken in an effort to provide you with optimal care, which includes your follow-up. Under all circumstances we always encourage you to contact your private physician who remains a resource for coordinating your care. When calling for follow-up care, please make the office aware that this follow-up is from your recent emergency room visit. If for any reason you are refused follow-up, please contact the [facility] Emergency Department at and asked to speak to the emergency department charge nurse. Sepsis Event Note (ED) - Evaluation Sepsis Screening Result: No Definite Risk
== END 2021-03-09 02:12 | disposition home or self-care (01) ==
LOC: MW.ED 22:23
DX: S39.012A Strain of muscle, fascia and tendon of lower back, initial encounter (principal); Z87.891 Personal history of nicotine dependence; X58.XXXA Exposure to other specified factors, initial encounter
CPT/HCPCS: 81003; 81025; 96372; 99283; J1885

== ENCOUNTER 2024-12-15 22:39 | Emergency (ER) | payer BC, MEDICAID ==
[2024-12-15] MEDS: Diphtheria,Pertussis(Acell),Tetanus Vaccine 0.5 ML Syringe IM ONE (23:52)
[2024-12-15] MEDS: Ketorolac 30 MG/ML SDV IM ONE (23:53)
[2024-12-16] MEDS: Bacitracin Oint 1 GM U/D Packet TOP ONE (01:35)
[2024-12-16] MEDS: Amoxicillin/Clavulanate K 875-125 MG Tab PO ONE (01:35)
== END 2024-12-16 02:08 | disposition home or self-care (01) ==
LOC: MW.ED 22:39
DX: S67.21XA Crushing injury of right hand, initial encounter (principal); S62.632A Displaced fracture of distal phalanx of right middle finger, initial encounter for closed fracture; S62.634A Displaced fracture of distal phalanx of right ring finger, initial encounter for closed fracture; S61.312A Laceration without foreign body of right middle finger with damage to nail, initial encounter; Z23 Encounter for immunization; W20.8XXA Other cause of strike by thrown, projected or falling object, initial encounter
CPT/HCPCS: 12002; 73130; 90471; 90715; 96372; 99283; A9270; J1885; J2003